=== PATIENT | male | born 1950 | race Caucasian/White ===

== ENCOUNTER 2022-05-30 15:47 | Outpatient (RCR) | payer MEDICARE, BC, SELFPAY ==
--- NOTE | 2022-05-27 14:58 | URNOTE ---
02/20/22 note entered by Claudia Figueroa:Request received from [facility] for prior authorization of Leuprolide [id number]. Patient carries Medicare as primary insurance. Per CMS.gov LCD [id number] no prior authorization is required for Leuprolide. Services are based on medical necessity and follows Medicare guidelines.
[2022-05-30] MEDS: LEUPROLIDE ACETATE 22.5 MG (SQ) SYRINGE SUBCUT (13:53)
[2022-05-30 14:42] VITALS: BP 130/79; PULSE 64; RESP 16; TEMP 36.1; O2SAT 98
== END 2022-05-30 23:59 | disposition home or self-care (01) ==
LOC: CCIC 15:47
PROVIDERS: PCP Internal Medicine; Visit Provider Clinical Nurse Specialist
DX: C61 Malignant neoplasm of prostate (principal)
CPT/HCPCS: 96372; J9217

== ENCOUNTER 2022-11-29 08:30 | Outpatient (RCR) | payer MEDICARE, BC, SELFPAY ==
[2022-08-30 08:30] VITALS: BP 134/84; PULSE 70; RESP 16; TEMP 36.1; O2SAT 96
[2022-08-30] MEDS: LEUPROLIDE ACETATE 22.5 MG (SQ) SYRINGE SUBCUT (08:54)
[2022-08-30 09:43] LABS: PSA Diagnostic* < 0.06 ng/mL (0.10-4.00)
--- NOTE | 2022-08-30 15:49 | ONC.NURNOTE ---
states after having covid this summer was sent home on a holter monitor. states has atrial fib with a episode of pause. pacemaker placed ? defibulator. denies discomfort. no reddness at pacemaker site. healed. heart rate reg [id number]. states on metoprolol 50mg a day with follow up with cardiology and may increase to 100 a day.
--- NOTE | 2022-11-18 10:57 | ONC.NURNOTE ---
Received order from radiation oncology for 6 month lupron shot. Called and discussed with PA and she said to follow with Dr. Vernon's recommendations. It appears that patient cancelled his appointment in October and so mortgage or loan underwriter called patient to talk about scheduling. He was okay with continuing with every three month shots, and PSA as ordered by med-onc. When patient comes in next week, will schedule him to be seen by oncologist to discuss increasing to six month shot.
[2022-11-29 09:00] VITALS: BP 122/76; PULSE 76; RESP 16; TEMP 36.6; O2SAT 97
[2022-11-29] MEDS: LEUPROLIDE ACETATE 22.5 MG (SQ) SYRINGE SUBCUT (09:33)
[2022-11-29 09:56] LABS: PSA Diagnostic* < 0.06 ng/mL (0.10-4.00)
== END 2023-01-11 23:59 | disposition home or self-care (01) ==
LOC: CCIC 08:30
PROVIDERS: PCP Internal Medicine Medical Oncology; Visit Provider Internal Medicine Medical Oncology
DX: C61 Malignant neoplasm of prostate (principal)
CPT/HCPCS: 36415; 84153; 96401; 99212; 99214; 99215; J9217

== ENCOUNTER 2023-05-19 08:45 | Outpatient (RCR) | payer MEDICARE, BC, SELFPAY ==
[2023-02-10 16:45] LABS: PSA Diagnostic* < 0.06 ng/mL (0.10-4.00)
[2023-02-12 16:53] LABS: Testosterone, Adult Male <3 ng/dL (300-720)
--- NOTE | 2023-02-14 13:03 | URNOTE ---
Received request for prior authorization for Leuprolide (J9217). Pt has medicare and [place]. Prior authorization is not required as services are based on medical necessity and follow medicare guidelines
--- NOTE | 2023-02-19 17:27 | ONC.PROVNOTE ---
[facility] Provider Note Clinic Note Narrative: Treatment plan: Eligard 45mg subQ every 24 weeks (6 months) Mr. Ruiz follows at our clinic for medical oncology, and also with Dr. Davis Villalpando, [facility], for medical management of prostate cancer. Clinic received paper order from Dr. Davis Villalpando for Mr. Ruiz to switch from eligard 3 month/12 week injection to 6 month/24 week injection. I have placed new treatment plan with first cycle 12 weeks from last 3 month injection on 11/29/[address] Villalpando.
--- NOTE | 2023-05-19 10:35 | PC.NURSE ---
Called pt today as he did not arrive for his lab appointment. Pt and his state that they have scheduled follow-up in [place] in July and plan to have PSA drawn at that time. They would like to have today's appointment cancelled. RN clarified the plan and confirmed cancellation of today's labs. They both agreed. Also of note, pt was hospitalized recently per his 's report. No details shared. Support offered.
--- NOTE | 2023-07-31 12:31 | ONC.NURNOTE ---
[employer] called to schedule 6 month lupron and follow up with [facility], patient stated that Dr. Villalpando has stopped any further Lupron. [employer] called 's office and was informed that lupron was stopped due to Osteoporosis and that Harshal will be having bloodwork and a follow up with Dr. Villalpando in October. Harshal has declined to schedule a follow up here and will call if he would like to be seen here.
== END 2023-08-09 23:59 | disposition home or self-care (01) ==
LOC: CCIC 08:45
PROVIDERS: Clinical Nurse Specialist; PCP Internal Medicine Medical Oncology; Referring Provider Internal Medicine Medical Oncology; Visit Provider Nurse Practitioner Family
DX: C61 Malignant neoplasm of prostate (principal)
CPT/HCPCS: 36415; 84153; 84403; 96401; 99212; 99214; J9217